=== PATIENT | female | born 2005 | race American Indian/Alaskan Native ===

== ENCOUNTER 2023-01-24 13:06 | Emergency (ER) | payer MEDICAID ==
[2023-01-24 13:28] VITALS: BP 128/59; PULSE 90
== END 2023-01-24 13:41 | disposition home or self-care (01) ==
LOC: DL.ED 13:06
DX: S61.211A Laceration without foreign body of left index finger without damage to nail, initial encounter (principal); W25.XXXA Contact with sharp glass, initial encounter
CPT/HCPCS: 99282